=== PATIENT | female | born 1975 | race Hispanic/Latino ===

== ENCOUNTER 2022-02-13 16:35 | Emergency (ER) | payer BC, OTHER ==
[~2022-02-13] VITALS: Ht 160 cm; Wt 72.6 kg
[2022-02-13] MEDS ORDERED: DONNATAL/LIDOCAINE/MAALOX 30 ML SUSP PO ONE ×2 (17:45→18:00)
[2022-02-13] MEDS ORDERED: ONDANSETRON HCL INJ 2MG/ML 2ML 2 MG/ML VIAL IV PRN (17:45)
[2022-02-13 18:11] LABS: BASOPHILS # (AUTO) 0.1 (0.0-0.1); BASOPHILS % 0.4 % (0.0-1.0); EOSINOPHILS # (AUTO) 0.1 (0.0-0.4); EOSINOPHILS % 0.6 % (0.0-6.0); HEMATOCRIT 40.2 % (34.2-44.1); HEMOGLOBIN 13.2 g/dL (12.0-16.0); LYMPHOCYTES # (AUTO) 1.8 (1.0-3.2); LYMPHOCYTES % 15.2 % (18.0-39.1); MEAN CORPUSCULAR HEMOGLOBIN 31.1 pg (28-32); MEAN CORPUSCULAR HGB CONC 32.8 g/dL (31-35); MEAN CORPUSCULAR VOLUME 94.6 fL (81-99); MONOCYTES # (AUTO) 0.7 (0.2-0.8); MONOCYTES % 6.1 % (4.4-11.3); NEUTROPHILS # (AUTO) 8.9 (2.1-6.9); NEUTROPHILS % 77.4 % (38.7-80.0); PLATELET COUNT 297 x10e3/uL (140-360); RED BLOOD COUNT 4.25 x10e6/uL (3.6-5.1); RED CELL DISTRIBUTION WIDTH 13.5 % (11.7-14.4)
[2022-02-13 18:31] LABS: ALBUMIN 4.1 g/dL (3.5-5.0); ALBUMIN/GLOBULIN RATIO 1.3 (0.8-2.0); ANION GAP 12.7 mmol/L (8-16); CREATININE, SERUM 0.68 mg/dL (0.57-1.11); POTASSIUM 3.7 mmol/L (3.5-5.1)
[2022-02-13] MEDS ORDERED: LIDOCAINE VISC 2% SOLN 15 ML UDC ONE (18:54)
[2022-02-13] MEDS ORDERED: BELLADONNA ALK/PHENOBARBITAL 5 ML UDC ONE (18:55)
[2022-02-13] MEDS ORDERED: MAGNESIUM/ALUMINUM/SIMETHICONE 30 ML UDC ONE (18:55)
[2022-02-13] MEDS ORDERED: PEPCID20 MG PO (19:16)
[2022-02-13] MEDS ORDERED: DICYCLOMINE HCL20 MG PO (19:16)
[2022-02-13] MEDS ORDERED: ONDANSETRON ODT4 MG PO (19:16)
== END 2022-02-13 19:50 | disposition home or self-care (01) ==
LOC: ER 16:53
DX: R10.13 Epigastric pain (principal); K29.70 Gastritis, unspecified, without bleeding; N20.1 Calculus of ureter; R11.0 Nausea; R94.31 Abnormal electrocardiogram [ECG] [EKG]
CPT/HCPCS: 36415; 71045; 74018; 80053; 83690; 84484; 84702; 85025; 93005; 99284; J2405

== ENCOUNTER 2024-07-26 21:07 | Emergency (ER) | payer OTHER ==
[~2024-07-26] VITALS: Ht 162.6 cm; Wt 80.7 kg
[~2024-07-26 21:07] MED LIST: DICYCLOMINE HCL20 MG PO; ONDANSETRON ODT4 MG PO; PEPCID20 MG PO
[2024-07-26 21:20] VITALS: TEMP 98.7
[2024-07-26] MEDS ORDERED: HYDROCODONE/APAP 5MG-325MG TAB ONE (21:24)
[2024-07-26] MEDS: HYDROCODONE/APAP 5MG-325MG TAB PO STA (21:29)
[2024-07-26] MEDS ORDERED: KETOROLAC TROMETHAMINE 60 MG/2 ML VIAL ONE (23:19)
[2024-07-26] MEDS: KETOROLAC TROMETHAMINE 60 MG/2 ML VIAL IM STA (23:24)
[2024-07-26] MEDS: ACETAMINOPHEN 325 MG TAB PO STA (23:25)
[2024-07-27] MEDS ORDERED: ULTRAM 50MG50 MG PO (00:16)
[2024-07-27 00:57] VITALS: PULSE 60; RESP 16; O2SAT 100
== END 2024-07-27 00:58 | disposition home or self-care (01) ==
LOC: ER 21:20
DX: S02.2XXA Fracture of nasal bones, initial encounter for closed fracture (principal); R51.9 Headache, unspecified; M25.511 Pain in right shoulder; M25.561 Pain in right knee; W22.09XA Striking against other stationary object, initial encounter; Y93.52 Activity, horseback riding; Y92.89 Other specified places as the place of occurrence of the external cause; Z87.19 Personal history of other diseases of the digestive system
CPT/HCPCS: 70450; 70486; 71045; 72125; 73562; 99284; J1885